=== PATIENT | female | born 1940 | race Caucasian/White ===

== ENCOUNTER 2023-08-30 12:52 | Outpatient (RCR) | payer MEDICARE, BC, SELFPAY | END 2023-08-30 23:59 | disposition home or self-care (01) | LOC: RPT 12:52 | PROVIDERS: ATTENDING PHYSICIAN Internal Medicine Gastroenterology; PRIMARYCARE PHYSICIAN Family Medicine | DX: M62.89 Other specified disorders of muscle (principal); N39.41 Urge incontinence; K59.00 Constipation, unspecified; N39.3 Stress incontinence (female) (male); Z73.6 Limitation of activities due to disability | CPT/HCPCS: 97014; 97112; 97530 ==

== ENCOUNTER 2023-09-13 13:14 | Outpatient (RCR) | payer MEDICARE, BC, SELFPAY | END 2023-09-13 23:59 | disposition home or self-care (01) | LOC: RPT 13:14 | PROVIDERS: ATTENDING PHYSICIAN Internal Medicine Gastroenterology; PRIMARYCARE PHYSICIAN Family Medicine | DX: M62.89 Other specified disorders of muscle (principal); N39.41 Urge incontinence; K59.00 Constipation, unspecified; N39.3 Stress incontinence (female) (male) | CPT/HCPCS: 97014; 97112; 97530 ==

== ENCOUNTER 2023-12-07 13:01 | Observation (INO) | payer MEDICARE, BC, SELFPAY ==
[2023-12-07] VITALS (8 sets, daily range): BP systolic 136–187; BP diastolic 58–91; BMI 27.0; BMI 24.4
[2023-12-07 10:45] LABS: Glucose - Point of Care 161 mg/dl (70-99)
--- NOTE | 2023-12-07 10:54 | ED.CVA ---
History of Present Illness
General
Chief Complaint: CVA/TIA Symptoms
Time Seen by Provider: 12/07/23 10:44
Onset of Stroke Symptoms
Onset of symptoms known: Yes
Date of onset of symptoms: 12/07/23
Travel History
Have you had any contact with someone who has COVID-19?: No
Do you have any symptoms of coronavirus? Fever > 100 degrees, chills, cough, shortness of breath, sore throat, loss of taste or smell, muscle aches, or headache?: No
History of Present Illness
History of Present Illness:
82-year-old female with history of Parkinson's and hypertension presents to the emergency department from home for evaluation of strokelike symptoms. At approximately 10 AM today she called her daughter and sounded quite anxious on the phone, could
communicate 'something is wrong' but remainder of speech was not eligible. Daughter last saw the patient last night at 6 PM where she was definitively normal. She has no speech or cognitive deficits as a result of her Parkinson's. Patient appears
quite anxious and repeats the phrase 'something is wrong'. She is not on any anticoagulants. Daughter notes that her blood pressure has been quite labile over the past few months, had her hydrochlorothiazide discontinued in August due to low
blood pressures but over the past week was noted to have high blood pressures, was last seen by her primary care physician 4 days ago
Past History
Past History
ED Past Medical History: HTN and Hypercholesterolemia
ED Past Surgical History: None
Social History
Tobacco: Non-smoker
Alcohol: None
Personal:
Living: with family
Employment: Retired
Family History
Family History: Other (Noncontributory)
Review of Systems
Review of Systems
Allergies reviewed?: Yes
All Other Systems: ROS reviewed and negative except as documented in HPI and ROS
Phy Exam
Physical Exam
Physical Exam:
GEN: Well appearing, NAD, WDWN
HEENT: Oral mucosa moist, no scleral icterus, no nasal congestion
Cardiac: Regular rate
Lung: No respiratory distress, no tachypnea
MSK: No gross deformity or injuries
Skin: Good color, no pallor or jaundice, no rashes
Neuro: Alert, follows commands. Notable aphasia, unable to answer date of , month, year, or location. Aware of name. Subtle right upper extremity drift and decreased handgrip, remainder of extremities display 5 out of 5 strength with intact
sensation throughout. Speech is clear but nonsensical. Normal visual barrientos
Psych: Calm, cooperative
Scores
NIH Stroke Score
Level of Consciousness: 0 - Alert
LOC Questions: 1-Answers one correctly
LOC Commands: 0-Performs both correctly
Best Horizontal Gaze: 0-Normal
Visual Barrientos: 0=Normal, no visual loss
Facial Palsy: 0=Normal, symmetrical
Motor - Right Arm: 0=No drift 10 seconds
Motor - Left Arm: 1=Drift < 10 seconds
Motor - Right Le-No drift 5 seconds
Motor - Left Le-No drift 5 seconds
Limb Ataxia: 0-Absent
Sensation: 0-Normal
Best Language: 2-Severe aphasia
Dysarthria: 0-Normal
Extinction and Inattention: 0-No abnormality
Total Score:: 4
Course
Orders/Labs/Results
Orders:
Orders
12/07/23 10:51
Electrocardiogram (*1) Urgent
Reason for Study: Other
Other Reason for Exam: Possible Stroke
Cardiac Monitoring- Treatment ONCE
EKG- Treatment ONCE
IV Insert/Care/Rem.- Treatment PRN
Vital Signs As Directed
Frequency: Other
Weight As Directed
Frequency: Once
Comment: ZERO STRETCHER SCALE FOR ACCURATE WEIGHT
O2 Therapy [RESP] Urgent
Titrate/Wean O2 to maintain O2 sat greater than (%): 93
Special Instructions: MAINTAIN CONTINUOUS O2 SATS > OR = 93%
12/07/23 10:52
CT Head W/o Cont STROKE ALERT Stat
Comment:
Reason For Exam: aphasia
12/07/23 10:53
CT Head/Neck Ang STROKE ALERT Urgent
Reason For Exam: expressive aphasia
12/07/23 10:55
Cardiovascular Evaluation Urgent
Complete Blood Count/With Diff Urgent
Comprehensive Metabolic Panel Urgent
Glycohemoglobin (HgbA1c) Urgent
PTT Urgent
Prothrombin Time Urgent
Troponin I Urgent
12/07/23 10:58
CT Brain Perfusion Urgent
Comment:
Reason For Exam: stroke
12/07/23 11:46
Aspirin 325 mg PO NOW STA
Lorazepam [Ativan] 0.5 mg PO NOW STA
12/07/23 12:11
MR Brain Without Contrast Routine
Comment:
Reason For Exam: Aphasia
Recent pill cam endoscopy?: No
Clopidogrel Bisulfate [Plavix] 300 mg PO NOW STA
12/07/23 12:12
Consult Neurology [NEUROLOGY CONSULT] Urgent
Consulting Provider: Mukesh Miller
Was physician already notified: Yes
12/07/23 12:15
Prochlorperazine [Compazine] 10 mg IV NOW STA
12/07/23 12:42
Urinalysis Reflex To Culture Routine
12/07/23 12:50
Admit/Transfer Patient As Directed
Co-Sign Provider:
Level of Care: Observation services
Assign to:: Telemetry
Physician / Group: Ty/hospitalist
Diagnosis: Confusion
Reason for Telemetry: CVA/TIA
Date to Stop Telemetry: 12/10/23
Time to Stop Telemetry: 11:00
Reason for Hospitalization: Confusion
12/07/23 12:51
Code Status As Directed
Resuscitation Status: Full Code
12/07/23 12:54
Add On- LAB Routine
Tests Added?: A1C, lipid panel
12/07/23 13:00
0.9% Sodium Chloride 1000 ml [Nss] 1,000 ml IV 60 mls/hr
Lidocaine [Lidocaine 4% Patch] 1 patch TOPICAL DAILY
12/08/23 08:00
Clopidogrel Bisulfate [Plavix] 75 mg PO DAILY
12/10/23 11:00
DC Protocol for Telemetry ONCE
Abnormal Lab Results
12/07/23 12/07/23
10:44 10:55
MPV 10.5 H fL
(7.4-10.4)
Absolute Monos (auto) 0.7 H 10^3/uL
(0.1-0.6)
Monocytes % 11.4 H %
(1.7-9.3)
APTT 23.3 L Sec
(23.4-35.0)
Sodium 134 L mmol/L
(135-145)
BUN 22 H mg/dl
(7-17)
Creatinine 1.2 H mg/dL
(0.6-1.0)
Glucose 161 H mg/dl
(70-99)
Hemoglobin A1c 6.7 H %
(4.0-5.6)
Calcium 10.4 H mg/dl
(8.4-10.2)
POC Glucose 161 H mg/dl
(70-99)
12/07/23 10:55
12/07/23 10:55
Vital Signs
Initial and Last Documented VS:
Initial Vital Signs
Temp Pulse Resp BP Pulse Ox
97.5 F 83 18 161/91 99
12/07/23 10:40 12/07/23 10:40 12/07/23 10:40 12/07/23 10:40 12/07/23 10:40
Last Documented Vital Signs
Temp Pulse Resp BP Pulse Ox
98.1 F 76 17 187/82 97
12/07/23 15:43 12/07/23 15:43 12/07/23 15:43 12/07/23 15:43 12/07/23 15:43
MDM/Problems Addressed
MDM/Problems Addressed:
Patient taken promptly to CT scan as a stroke alert. After careful discussion with neurology, CT perfusion and CT angiogram were both obtained however these studies were grossly unremarkable. Given the unclear onset of patient's symptoms through
shared decision-making with family as well as neurology that thrombolytic therapy was not appropriate. Will admit the patient for further stroke workup, aspirin load given in the emergency department per neurology recommendations.
Comment
Comment:
EKG independently interpreted by me shows normal sinus rhythm, rate of 81, PVC noted, no ischemic changes however significant patient motion artifact is noted particularly in the inferior leads
*Critical Care Note
Total Time (30-74mins, 75-104mins- exclusive of procedures): Not Applicable
Update Note
Update Note:
1057: Neurology arrived, discussed case. I Will proceed with CTH, CT perfusion due to presumed acute but uncertain onset, CTA.
1139: D/W rads and neuro. CTA/CTP negative. TNK not indicated at this time as the onset is not clearly symptoms do seem to have some degree of improvement. Some improvement in aphasia noted. WIll admit for further stroke workup
ED Attending Note
-
Portions of this chart may have been created with voice recognition software.� Occasional wrong word or��sound alike� substitutions may have occurred due to the inherent limitations of voice recognition software.
Discharge Plan
Departure
Patient Disposition: Admit
Date of Disposition: 12/07/23
Time of Disposition: 11:46
Admit to: Telemetry
Presentation/result/management discussed w/ accepting MD/DO: Hospitalist
Discharge Problem:
Expressive aphasia
Interventions
Interventions:
*Risk Screen - Suicide Last Done: 12/07/23 10:40
*General Assessment Last Done: 12/07/23 10:40
*Neglect/Abuse Screening Last Done: 12/07/23 10:40
ED- Fall Risk Assessment Last Done: 12/07/23 11:25
*ED COVID-19 Vaccine History Last Done: 12/07/23 10:40
*Nursing Disposition Last Done: 12/07/23 15:03
ED- Pulmonary Assessment Last Done: 12/07/23 11:25
ED- Neurological Assessment Last Done: 12/07/23 11:31
ED- Cardiac Assessment Last Done: 12/07/23 11:24
ED Swallowing Screen Last Done: 12/07/23 11:45
Discharge Date and Time
Discharge Date/Time: 12/07/23 15:05
--- NOTE | 2023-12-07 10:59 | EDRN ---
Patient transported to CT via stretcher by RAGHAV Dexter and Dr. Miller.
--- NOTE | 2023-12-07 11:03 | CON.NEURO ---
Neuro Assessment/Plan
Assessment
IMPRESSIONS/RECOMMENDATIONS:
Abrupt change in speech with confusion
CT perfusion failed to demonstrate an obvious deficit which suggests that the lesion is most likely either outside the acute range, or nonvisualized. Most likely the patient has experienced an acute ischemic stroke. Differential diagnosis would
include functional neurological disorder.
Patient was not a candidate for intra-arterial thrombectomy as there is no evidence of a clot for retrieval, was not a candidate for tenecteplase due to lack of clarity regarding time of onset of symptoms
Plan
Initiate combination of aspirin and clopidogrel with loading doses provided as 325 mg and 300 mg respectively
Provide daily aspirin and clopidogrel x 21 total days, then aspirin alone if MRI demonstrates acute ischemic stroke
Check MRI of brain
Check lipid profile, continue rosuvastatin
Rehabilitation evaluations
Medical educational materials to be provided
Provide lorazepam 0.5 mg now in hopes of reducing anxiety which may be producing symptomatology although this is unclear
Provide carbidopa/levodopa as symptomatic treatment for Parkinson's
Goal of blood pressure less than 220/120 until tomorrow morning at which time patient may have the goal of normotension
Goal of normoglycemia
Provide prochlorperazine to the patient's self stated left-sided neck pain which may be migrainous in origin
Will continue to follow patient. Thank you.
Consultation
Order
Date of Consultation: 12/07/23
Requesting Provider: ED Provider
Reason for Consult: Aphasia
Subjective/Objective
Subjective Data
Date of Service: December 07, 2023
Patient presented to this hospital's emergency department with acute onset speech dysfunction and confusion. Patient called daughter at 10:00 today to indicate there was a problem although was unable to indicate what the problem had been. Of note
is that the patient has had labile hypertension with changes in antihypertensives with last modification approximately 4 days prior to this presentation.
The patient himself is not aware of other associated symptoms at this time and there are no known modifying factors. The patient has not experienced similar difficulties in the past.
Of note is that the patient was diagnosed with Parkinson's disease and has utilized carbidopa/levodopa as prescribed by a local neurologist. There is a suggestion that the patient has undergone MRI imaging of the brain previously. Patient has
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 The patient was diagnosed following onset of left hand tremor beginning in October 2022.
Objective Data
Vital Signs
Temp Pulse Resp BP Pulse Ox
36.4 C 83 18 161/91 99
12/07/23 10:40 12/07/23 10:40 12/07/23 10:40 12/07/23 10:40 12/07/23 10:40
Patient Allergies
No Known Allergies Allergy (Unverified 05/18/23 11:20)
CVA Assessment
Onset of Stroke Symptoms
Onset of symptoms known: No
Time pt last seen normal is known: Yes
Date last time pt seen normal: 12/07/23
Time last time pt seen normal: 18:00
NIH Stroke Score
Level of Consciousness: 0 - Alert
LOC Questions: 1-Answers one correctly
LOC Commands: 1-Performs one correctly
Best Horizontal Gaze: 0-Normal
Visual Rogers: 0=Normal, no visual loss
Facial Palsy: 0=Normal, symmetrical
Motor - Right Arm: 0=No drift 10 seconds
Motor - Left Arm: 0=No drift 10 seconds
Motor - Right Le-No drift 5 seconds
Motor - Left Le-No drift 5 seconds
Limb Ataxia: 0-Absent
Sensation: 0-Normal
Best Language: 0-No aphasia
Dysarthria: 0-Normal
Extinction and Inattention: 0-No abnormality
Total Score:: 2
Tenecteplase Contraindications
Inclusion and Exclusion criteria reviewed: Yes
Review of Systems
-
History Source: Patient
All other systems: Reviewed and negative
EENT: Negative Decreased Vision or Swallowing Difficulty
Respiratory: Negative Trouble Breathing
Cardiac: Negative Chest Pain
Abdomen/GI: Negative Incontinence of Stool
Genitourinary: Negative Incontinence
Musculoskeletal: Neck Pain; Negative Back Pain
Neuro: Dizzy and Headache
Physical Exam
-
General: No Apparent Distress and Appears Stated Age
Eyes: OU Absent Papilledema, Round OU, Snowslip Conjunctivae and No Ptosis
HEENT: Anicteric and Moist Mucous Membranes
Neck: Full Range of Motion
Respiratory: No Dyspnea
Cardiac: No JVD
GI: Non-distended
Skin: Unremarkable
Extremities: No Clubbing, No Cyanosis and No Edema
Psych: Intact Judgement/Insight
Extended Neurological Exam
Mood & Affect: Anxious
Attention Span & Concentration: Awake, Alert, Interactive and Moderate Difficulty with 2 Step Request
Memory: Unable to Recall Personal History
Tremor: Head Tremor Absent, Distal, Amplitude (medium left hand, rhythmic) and Frequent
Speech: Quality Unremarkable, Mildly Reduced Output and Other (OK short phrases, with later non-sensical words)
Cranial Nerve II: Left Eye: Pupillary Reactivity Unremarkable, Pupillary Size Unremarkable and Visual Rogers Intact
Cranial Nerve II: Right Eye: Pupillary Reactivity Unremarkable, Pupillary Size Unremarkable and Visual Rogers Intact
Cranial Nerves III, IV, : Extraocular Movement: Extraocular Movement Full in all Directions
Cranial Nerve VII: Facial Symmetry: Normal Facial Symmetry
Cranial Nerve VIII: Hearing: Unremarkable Hearing to Normal Conversational Volume
Cranial Nerves IX, X: Palate Movement: Palate Elevation Symmetric
Cranial Nerve XI: Shoulder Shrug: Unremarkable
Cranial Nerve XII: Tongue Protusion: Midline
Muscle Strength, Overall: Full Throughout
Muscle Bulk & Tone: Bulk Unremarkable and Tone Unremarkable
Pronator Drift: No Drift in Upper Extremities
Deep Tendon Reflexes: Trace Throughout
Cold Sensation: Unable to Assess
Vibration Sensation: Unable to Assess
Touch Sensation: Unremarkable
Coordination: [id number]-[id number] Testing Unremarkable
Babinski Sign: Absent Bilaterally
Gait & Station: Unable to Assess
Data Reviewed
-
CT Head: Image Reviewed
Labs: Ordered
Reviewed with: Physician Awning Craftsperson and Family
Old Records: Summarized
Medications
-
Home Medications
�Medication �Instructions �Recorded
ondansetron 4 mg disintegrating 4 mg PO QIDPRN PRN nausea/vomiting 05/12/17
tablet #10 tabs
sucralfate 100 mg/mL oral 1 gm PO ACHS #300 mL 05/12/17
suspension (Carafate)
meclizine 12.5 mg tablet 12.5 mg PO TID PRN dizziness #30 05/18/23
tabs
Past History
Past History
ED Past Medical History: HTN, Hypercholesterolemia, NIDDM and Other (PD); Negative Renal failure (CKD3a)
ED Past Surgical History: None
Social History
Tobacco: Non-smoker
Alcohol: None
Personal:
Living: with family
Employment: Retired
Family History
Family History: Other (Noncontributory)
[2023-12-07 11:05] LABS: % Basophils 1.1 % (0-2); % Eosinophils 2.8 % (0-6); % Immature Granulocytes 0.3 % (0-0.5); % Lymphocytes 36.3 % (20.5-51.1); % Monocytes 11.4 % (1.7-9.3); % Neutrophils 48.1 % (42.2-75.2); Absolute Basophils 0.1 10^3/uL (0-0.2); Absolute Eosinophils 0.2 10^3/uL (0-0.7); Absolute Lymphocytes 2.4 10^3/uL (1.2-3.4); Absolute Monocytes 0.7 10^3/uL (0.1-0.6); Absolute Neutrophils 3.1 10^3/uL (1.4-6.5); Hemoglobin 13.2 g/dL (12.0-16.0); Mean Corp Hgb Conc. 34.7 g/dL (33.0-37.0); Mean Corpuscular Hgb 28.6 pg (27.0-31.0); Mean Corpuscular Volume 82.3 fL (81.0-99.0); Mean Platelet Volume 10.5 fL (7.4-10.4); Nucleated Red Blood Cells % 0 %; Platelet Count 290 10^3/uL (130-400); Red Blood Cell Count 4.62 10^6/uL (4.20-5.40); Red Cell Dist. Width 13.5 % (11.5-14.5); White Blood Cell Count 6.5 10^3/uL (4.8-10.8)
[2023-12-07 11:17] LABS: ALT (SGPT) 11 U/L (0-35); AST (SGOT) 26 U/L (14-36); Albumin 4.9 g/dl (3.5-5.0); Alkaline Phosphatase 107 U/L (38-126); Blood Urea Nitrogen 22 mg/dl (7-17); Calcium 10.4 mg/dl (8.4-10.2); Carbon Dioxide 25 mmol/L (22-30); Chloride 100 mmol/L (98-107); Estimated Creatinine Clearance 31 ml/min; Glucose 161 mg/dl (70-99); Potassium 3.6 mmol/L (3.5-5.1); Sodium 134 mmol/L (135-145); Total Bilirubin 1.3 mg/dl (0.2-1.3); Total Protein 7.7 g/dl (6.3-8.2); eGFR 45.48
[2023-12-07 11:23] LABS: INR 1.03; PT 13.3 Sec (11.4-14.6)
[2023-12-07 11:24] LABS: APTT 23.3 Sec (23.4-35.0)
[2023-12-07 11:29] LABS: Troponin I < 0.012 ng/ml
[2023-12-07] MEDS: ATIVAN 0.5 MG PO (11:58)
[2023-12-07] MEDS: ASPIRIN 325 MG PO (11:58)
--- NOTE | 2023-12-07 12:12 | HPS.HSE ---
Family Physician
-
Family Physician: Radha Conklin
Chief Complaint
-
Confusion
History of Present Illness
HPI: 82-year-old female with history of Parkinson's, hypertension, HLD, anxiety presented to the emergency department for confusion. She is awake but not orientated, which is abnormal per daughter at bedside.
According to daughter, patient is very functional at baseline despite having Parkinson's. She could drive herself at baseline.
Pt c/o L neck localized pain. She has garbled speech. Denies to weakness or paresthesia. Cannot fully provide ROS due to her current confusion. She was last found normal the day prior to admission.
Medical History
Past Medical History
Past Medical History: Reports Other
Additional Past Medical History:
Parkinson's
hypertension
HLD
anxiety
Past Surgical History: Reports None
Social History
Tobacco: Non-smoker
Alcohol: None
Living: Alone
Family History
Family History: Not pertinent
Allergies / Home Medications
Allergies reflects when Allergies were last updated in [facility].
Home Medications with original date entered in [facility]
Allergy/Medication List:
Allergies
Allergy/AdvReac Type Severity Reaction Status Date / Time
No Known Allergies Allergy Unverified 05/18/23 11:20
Home Medications
alprazolam 0.5 mg tablet 0.25 - 0.5 mg PO HSPRN PRN SLEEP 12/07/23
carbidopa 25 mg-levodopa 100 mg tablet 1 tab PO TID Neurological Condition 12/07/23
escitalopram oxalate 10 mg tablet 10 mg PO DAILY Depression 12/07/23
linaclotide 290 mcg capsule (Linzess) 290 mcg PO DAILY Constipation 12/07/23
losartan 25 mg tablet 25 mg PO DAILY Blood Pressure 12/07/23
losartan 50 mg tablet 50 mg PO DAILY@1500 12/07/23
metoprolol succinate 50 mg tablet,extended release 24 hr 50 mg PO DAILY Blood Pressure 12/07/23
pantoprazole 40 mg tablet,delayed release 40 mg PO DAILY Gastrointestinal Issue 12/07/23
polyethylene glycol 3350 17 gram/dose oral powder 17 g PO DAILY Constipation 12/07/23
rosuvastatin 40 mg tablet 40 mg PO DAILY High Cholesterol 12/07/23
Review of Systems
-
Neurological: Reports See HPI and Other (Confusion); Denies Weakness or Numbness
Physical Exam
Vital Signs
Vital Signs
Temp Pulse Resp BP Pulse Ox
36.4 C 83 17 145/58 100
12/07/23 10:40 12/07/23 12:00 12/07/23 12:00 12/07/23 11:41 12/07/23 11:30
Physical Exam
General: Well Developed, Well Nourished, No Apparent Distress, Comfortable and Conversant
HEENT: NormoCephalic, Moist mucous membranes and Atraumatic
Respiratory: Clear and Non Labored Respirations; No Accessory Resp Muscle Use
Cardiac: S1/S2 and Regular Rhythm; No Murmur or Rub
GI: Soft, Non Tender, Non Distended and Normal Bowel Sounds; No Organomegaly
Rectal: Deferred by Provider
Musculoskeletal: No Clubbing, No Cyanosis and No Edema
Skin: No Rash
Neuro: Awake, Alert, No Motor Deficits, No Sensory Deficits and Slurred Speech; No AO x 3 or Facial Droop
Psych: Calm, Confused and Anxious; No Intact Judgment/Insight
Laboratory Results
-
12/07/23 10:55
12/07/23 10:55
Laboratory Results
PT 13.3 Sec (11.4-14.6) 12/07/23 10:55
INR 1.03 12/07/23 10:55
APTT 23.3 Sec (23.4-35.0) L 12/07/23 10:55
Total Bilirubin 1.3 mg/dl (0.2-1.3) 12/07/23 10:55
AST 26 U/L (14-36) 12/07/23 10:55
ALT 11 U/L (0-35) 12/07/23 10:55
Alkaline Phosphatase 107 U/L (38-126) 12/07/23 10:55
Troponin I < 0.012 ng/ml 12/07/23 10:55
Data Reviewed
-
CT Scan: Report Reviewed by me
Lab Data: Labs Reviewed by me
Impression/Plan
-
HPI: 82-year-old female with history of Parkinson's, hypertension, HLD, anxiety presented to the emergency department for confusion. She is awake but not orientated, which is abnormal per daughter at bedside.
According to daughter, patient is very functional at baseline despite having Parkinson's. She could drive herself at baseline.
Pt c/o L neck localized pain. She has garbled speech. Denies to weakness or paresthesia. Cannot fully provide ROS due to her current confusion. She was last found normal the day prior to admission.
A/P:
# Acute metabolic encephalopathy, due to acute stroke/TIA vs anxiety vs others
CT head, CT Angio head and neck are unrevealing
Neuro on board, [facility] MRI brain (Ativan prior to MRI for anxiety/claustrophilia)
ASA and Plavix
Check A1C, lipid panel
Check UA reflex Cx to r/o UTI
SPL eval prior to starting diet due to current garbled speech
# Possible JUJU
SCr 1.2 from baseline 1.0
Hold PHYS ASST HCTZ / losartan
Gentle IVF
# Left neck localized pain, likely MSK
Trial of lidocaine patch
PT OT eval
# Parkinson's disease
Continue with prior to admission Sinemet
# Essential hypertension
Holding PHYS ASST HCTZ /losartan
Continue prior to admission Toprol and consider increasing dose if needed
# anxiety
Continue prior to admission low-dose Xanax (increase to TID PRN from HS)
DVT ppx: SCD for now
FC
Discussed with daughter at bedside
--- NOTE | 2023-12-07 12:37 | PHANOTE ---
Med Rec Note:
Pt's family unsure of pt's medications, states pt's primary dr faxed over med list and was updated on . Home med list compiled from Dr Camarillo and Physicians list.
[2023-12-07] MEDS: PLAVIX 300 MG PO (12:44)
[2023-12-07] MEDS: COMPAZINE 10 MG IV (12:44)
[2023-12-07] MEDS: TYLENOL 1000 MG PO (13:26)
[2023-12-07] MEDS: ROXICODONE 2.5 MG PO (13:26)
[2023-12-07] MEDS: LIDOCAINE 4% PATCH 1 PATCH TOPICAL (13:27)
[2023-12-07 13:36] LABS: HDL Cholesterol 59 mg/dl; LDL Cholesterol, Calculated 66 mg/dl; Total Cholesterol 150 mg/dl (50-199); Triglyceride 127 mg/dl (10-149); Very Low Density Lipoprotein 25 mg/dl (0-30)
[2023-12-07 14:10] LABS: Glycohemoglobin (HgbA1c) 6.7 % (4.0-5.6)
[2023-12-07] MEDS: NSS 1000 IV (15:18)
--- NOTE | 2023-12-07 17:52 | PTCARENOTE ---
Received Pt from ED. AAOx1. NIH score 3. Oriented to room and use of call mccain. Family at bedside. BP elevated, aware- new order Hydralazine 10mg IV q4hrs PRN SBP >180. Call mccain within reach.
[2023-12-07] MEDS: SINEMET 25-100 1 TABLET PO ×2 (17:55→22:33)
[2023-12-07] MEDS: TYLENOL 650 MG PO (18:00)
[2023-12-08 03:45] VITALS: BP 146/68
[2023-12-08] MEDS: NSS 1000 IV (04:21)
[2023-12-08 07:00] VITALS: BP 157/74
[2023-12-08 07:43] LABS: Hematocrit 34.4 % (37.0-47.0); Hemoglobin 11.6 g/dL (12.0-16.0); Mean Corp Hgb Conc. 33.7 g/dL (33.0-37.0); Mean Corpuscular Hgb 28.9 pg (27.0-31.0); Mean Corpuscular Volume 85.6 fL (81.0-99.0); Mean Platelet Volume 10.7 fL (7.4-10.4); Platelet Count 230 10^3/uL (130-400); Red Blood Cell Count 4.02 10^6/uL (4.20-5.40); Red Cell Dist. Width 13.6 % (11.5-14.5); White Blood Cell Count 5.6 10^3/uL (4.8-10.8)
--- NOTE | 2023-12-08 08:08 | W.PN.NEURO.1 ---
Today's Communication / Plan
-
Discontinue combination of aspirin and clopidogrel, continue aspirin 81 mg daily for next 6 months
continue rosuvastatin
Rehabilitation evaluations
Provide carbidopa/levodopa as symptomatic treatment for Parkinson's
Monitor outpatient orthostatic BPs
Will need to follow with usual outpatient neurologist
Neuro Assessment/Plan
Assessment
IMPRESSIONS/RECOMMENDATIONS:
Abrupt change in speech with confusion
CT perfusion study failed to demonstrate an obvious deficit which suggests that the lesion is most likely either outside the acute range, or nonvisualized.
MRI of the brain also failed to demonstrate ischemic injury previously or acutely
Most likely diagnosis is migraine with aura or TIA.
Plan
Discontinue combination of aspirin and clopidogrel, continue aspirin 81 mg daily for next 6 months
continue rosuvastatin
Rehabilitation evaluations
Provide carbidopa/levodopa as symptomatic treatment for Parkinson's
Monitor outpatient orthostatic BPs
goal of normotension
Goal of normoglycemia
Will need to follow with usual outpatient neurologist.
Subjective/Objective
Subjective Data
Date of Service: December 08, 2023
Headache for days prior to presentation.
Unable to recall, not improved, resolved.
Objective Data
Vital Signs
Temp Pulse Resp BP Pulse Ox
36.5 C 59 18 157/74 97
12/08/23 07:00 12/08/23 07:00 12/08/23 07:00 12/08/23 07:00 12/08/23 07:00
Lab Results
12/08/23 07:13
PT 13.3 Sec (11.4-14.6) 12/07/23 10:55
INR 1.03 12/07/23 10:55
APTT 23.3 Sec (23.4-35.0) L 12/07/23 10:55
Sodium 134 mmol/L (135-145) L 12/07/23 10:55
Potassium 3.6 mmol/L (3.5-5.1) 12/07/23 10:55
BUN 22 mg/dl (7-17) H 12/07/23 10:55
Glucose 161 mg/dl (70-99) H 12/07/23 10:55
Calcium 10.4 mg/dl (8.4-10.2) H 12/07/23 10:55
LDL Cholesterol, Calc 66 mg/dl 12/07/23 10:55
Patient Allergies
No Known Allergies Allergy (Unverified 05/18/23 11:20)
Review of Systems
-
History Source: Patient
All other systems: Reviewed and negative
EENT: Negative Decreased Vision or Swallowing Difficulty
Respiratory: Negative Trouble Breathing
Cardiac: Negative Chest Pain
Abdomen/GI: Negative Incontinence of Stool
Genitourinary: Negative Incontinence
Musculoskeletal: Negative Back Pain or Neck Pain
Neuro: Negative Dizzy or Headache
Physical Exam
-
General: No Apparent Distress and Appears Stated Age
Eyes: Round OU, [place] Conjunctivae and No Ptosis
HEENT: Anicteric and Moist Mucous Membranes
Neck: Full Range of Motion
Respiratory: No Dyspnea
Cardiac: No JVD
GI: Non-distended
Skin: Unremarkable
Extremities: No Clubbing, No Cyanosis and No Edema
Psych: Intact Judgement/Insight
Extended Neurological Exam
Mood & Affect: Mood Unremarkable and Affect Unremarkable
Attention Span & Concentration: Awake, Alert and Interactive
Memory: Unremarkable
Tremor: Head Tremor Absent, Distal, Amplitude (medium left hand, rhythmic) and Frequent
Speech: Quality Unremarkable and Quantity Unremarkable
Cranial Nerve II: Left Eye: Pupillary Size Unremarkable and Visual Rogers Grossly Intact
Cranial Nerve II: Right Eye: Pupillary Size Unremarkable and Visual Rogers Grossly Intact
Cranial Nerves III, IV, : Extraocular Movement: Grossly Intact
Cranial Nerve VII: Facial Symmetry: Normal Facial Symmetry
Cranial Nerve VIII: Hearing: Unremarkable Hearing to Normal Conversational Volume
Muscle Strength, Overall: Spontaneously Moves
Muscle Bulk & Tone: Bulk Unremarkable and Tone Unremarkable
Pronator Drift: No Drift in Upper Extremities
Touch Sensation: Unremarkable
Coordination: Reaches for Objects without Difficulty
Data Reviewed
-
MRI Head: Report Reviewed
Labs: Report Reviewed
Reviewed with: Physician, Patient and Family
Old Records: Summarized
Past History
Past History
ED Past Medical History: HTN, Hypercholesterolemia, NIDDM and Other (PD); Negative Renal failure (CKD3a)
ED Past Surgical History: None
Social History
Tobacco: Non-smoker
Alcohol: None
Personal:
Living: with family
Employment: Retired
Family History
Family History: Other (Noncontributory)
Medications
-
Medications:
Generic Name Dose Route Start Last Admin
Trade Name Freq PRN Reason Stop Dose Admin
Acetaminophen 650 mg 12/07/23 16:27
Acetaminophen 650 Mg Rectal Suppository RECTAL 01/04/24 16:26
Q4HPRN PRN
TORRES, mild pain, or temp >100.4F
Acetaminophen 650 mg 12/07/23 16:27 12/07/23 18:00
Acetaminophen 325 Mg Tablet PO 01/04/24 16:26 650 mg
Q4HPRN PRN Administration
TORRES, mild pain, or temp >100.4F
Alprazolam 0.25 mg 12/07/23 18:00
Alprazolam 0.25 Mg Tablet PO 01/04/24 17:59
Q8HPRN PRN
anxiety
Aspirin 81 mg 12/08/23 08:00
Aspirin 81 Mg Chewable Tablet PO 01/05/24 07:59
DAILY LETICIA
Carbidopa/Levodopa 1 tablet 12/07/23 16:27 12/07/23 22:33
Carbidopa (25 Mg)/Levodopa (100 Mg) Regular Release Tablet PO 01/04/24 16:26 1 tablet
TID LETICIA Administration
Clopidogrel Bisulfate 75 mg 12/08/23 08:00
Clopidogrel 75 Mg Tablet PO 12/28/23 08:01
DAILY LETICIA
Escitalopram Oxalate 10 mg 12/08/23 08:00
Escitalopram 10 Mg Tablet PO 01/05/24 07:59
DAILY LETICIA
Hydralazine HCl 10 mg 12/07/23 18:17
Hydralazine 20 Mg/Ml Vial IV 01/04/24 18:16
Q4HPRN PRN
SBP >180
Sodium Chloride 1,000 mls @ 60 mls/hr 12/07/23 13:00 12/08/23 04:21
Nss IV 1,000 mls
.[id number] LETICIA Administration
Lidocaine 1 patch 12/07/23 13:00 12/07/23 13:27
Lidocaine 4% Topical Patch TOPICAL 01/04/24 12:59 1 patch
DAILY LETICIA Administration
Linaclotide 290 mcg 12/08/23 08:00
Linaclotide 290 Mcg Capsule PO 01/05/24 07:59
DAILY LETICIA
Metoprolol Succinate 50 mg 12/08/23 08:00
Metoprolol 50 Mg Extended Release Tablet PO 01/05/24 07:59
DAILY LETICIA
Pantoprazole Sodium 40 mg 12/08/23 08:00
Pantoprazole 40 Mg Delayed Release Tablet PO 01/05/24 07:59
DAILY LETICIA
Patch Removal 1 patch 12/07/23 20:00 12/07/23 22:34
Remove Lidocaine Patch REMOVE 01/04/24 19:59 Not Given
DAILY@2000 LETICIA
Polyethylene Glycol 17 grams 12/08/23 08:00
Polyethylene Glycol Powder 17 Grams Packet PO 01/05/24 07:59
DAILY LETICIA
Rosuvastatin Calcium 40 mg 12/08/23 08:00
Rosuvastatin (Crestor) 40 Mg Tablet PO 01/05/24 07:59
DAILY LETICIA
Sodium Chloride 0 flush 12/07/23 17:00
Sodium Chloride 0.9% (Flush) Syringe IV 01/04/24 16:59
PER PROTOCOL LETICIA
[2023-12-08] MEDS: LEXAPRO 10 MG PO (08:34)
[2023-12-08] MEDS: TOPROL XL 50 MG PO (08:34)
[2023-12-08] MEDS: PROTONIX 40 MG PO (08:34)
[2023-12-08] MEDS: MIRALAX 17 GRAMS PO (08:34)
[2023-12-08] MEDS: CRESTOR 40 MG PO (08:34)
[2023-12-08] MEDS: SINEMET 25-100 1 TABLET PO (08:34)
[2023-12-08] MEDS: LIDOCAINE 4% PATCH 1 PATCH TOPICAL (08:35)
[2023-12-08 08:38] LABS: Blood Urea Nitrogen 16 mg/dl (7-17); Calcium 9.5 mg/dl (8.4-10.2); Carbon Dioxide 25 mmol/L (22-30); Chloride 101 mmol/L (98-107); Estimated Creatinine Clearance 48 ml/min; Glucose 92 mg/dl (70-99); HDL Cholesterol 45 mg/dl; LDL Cholesterol, Calculated 56 mg/dl; Potassium 3.5 mmol/L (3.5-5.1); Sodium 137 mmol/L (135-145); Total Cholesterol 119 mg/dl (50-199); Triglyceride 91 mg/dl (10-149); Very Low Density Lipoprotein 18 mg/dl (0-30); eGFR > 60.00
[2023-12-08 09:22] VITALS: BP 163/68; PULSE 61; O2SAT 97
--- NOTE | 2023-12-08 09:31 | PTOTSP ---
Patient demonstrates safe and independent mobility including stairs, no skilled physical therapy needs at this time.
--- NOTE | 2023-12-08 10:48 | W.PN.HOSP.TC ---
Addendum entered and electronically signed by Cayla Crawford MD 12/08/23 11:49:
discussed with neuro. Recc to cont baby aspirin going forward- sent to pharmacy
total DC time 40 min
Original Note:
Today's Communication/Plan
-
DC home with HH
Assessment / Plan
Assessment / Plan
HPI: 82-year-old female with history of Parkinson's, hypertension, HLD, anxiety presented to the emergency department for confusion. She is awake but not orientated, which is abnormal per daughter at bedside.
According to daughter, patient is very functional at baseline despite having Parkinson's. She could drive herself at baseline.
Pt c/o L neck localized pain. She has garbled speech. Denies to weakness or paresthesia. Cannot fully provide ROS due to her current confusion. She was last found normal the day prior to admission.
MRI brain:
1. No MRI evidence for acute infarct or intracranial hemorrhage.
2. Mild white matter leukoaraiosis in the frontal and parietal lobes.
3. Mild diffuse cerebral and cerebellar volume loss.
4. Moderate discogenic degenerative disease and 3.5 mm anterolisthesis at C3/C4 with a central disc herniation causing mild spinal cord compression and central canal stenosis.
A/P:
# Acute metabolic encephalopathy, likely due to severe anxiety
CT head, CT Angio head and neck are unrevealing
MRI brain negative for acute stroke, noted mild white matter leukoaraiosis in the frontal and parietal lobes.
Off ASA and Plavix
Garbled speech has resolved, no need for SPL eval, can cont solid food
# JUJU, resolved
SCr 1.2 -> 0.8, from baseline 1.0
resume [employer] HCTZ / losartan and check BMP in 1 week with result to PCP
s/p IVF
# Left neck localized pain, likely due to central disc herniation causing mild spinal cord compression and central canal stenosis- pain has resolved
MRI brain result at above
given pain has resolved , no need for neurosurgery eval at this point , can follow neurosurgery outpt
added lidocaine this admission, cont going forward
# Parkinson's disease
Continue with prior to admission Sinemet
# Essential hypertension
Holding [employer] HCTZ /losartan
Continue prior to admission Toprol and consider increasing dose if needed
# anxiety
Continue prior to admission low-dose Xanax (increase to TID PRN from HS)
DVT ppx: SCD for now
FC
Discussed with daughter at bedside
Anticipated Discharge: Today
Subjective/Interval History
-
Date of Service: December 08, 2023
Objective Data
-
Labs:
Laboratory Results
12/08/23
07:13
WBC 5.6
Hgb 11.6 L
Hct 34.4 L
Plt Count 230 D
Sodium 137
Potassium 3.5
Chloride 101
Carbon Dioxide 25
BUN 16
Creatinine 0.8
Glucose 92
Calcium 9.5
Vital Signs:
Vital Signs
Temp Pulse Resp BP Pulse Ox
36.5 C 59 18 157/74 97
12/08/23 07:00 12/08/23 07:00 12/08/23 07:00 12/08/23 07:00 12/08/23 07:00
I&O
12/07/23 12/08/23 12/09/23
06:59 06:59 06:59
Output Total 200 / 200
Balance -200 / -200
Review of Systems
-
All other systems: Reviewed and negative
Neuro: Reports No Symptoms; Denies Weakness, Numbness or Ataxia
Physical Exam
-
General: Well Developed, Well Nourished, No Apparent Distress, Comfortable and Conversant; Negative Respiratory Distress
HEENT: Normocephalic, Atraumatic, Nose Appears Normal and Ears Appear Normal; Negative Oxygen
Respiratory: Clear to Auscultation and Non Labored Respirations; Negative Accessory Resp Muscle Use
Cardiac: Regular Rhythm and S1/S2
GI: Soft, Nontender, Nondistended and Normal Bowel Sounds
Skin: Warm and Dry
Neuro: Awake, Alert, Oriented and Nonfocal/Grossly Intact
Psych: Calm and Intact Judgement/Insight
Data Reviewed
-
MRI: Report Reviewed by me and Discussed with Family
Labs: Labs Reviewed by me
[2023-12-08 11:00] VITALS: BP 156/68
[2023-12-08 11:34] VITALS: BP 156/68
[2023-12-08] MEDS: LINZESS 290 MCG PO (11:58)
--- NOTE | 2023-12-08 12:33 | CM ---
Received notification that patient has been medically cleared for discharge by attending and will need VN services. Reviewed chart, met with patient to obtain information for assessment.
Patient stated that she lives alone in a two story condo with two steps to enter. She described herself as independent with her ADLs, personal care, dressing and bathing. She ambulates without device. She confirmed that she can do her own household
chores, cooking, cleaning and laundry.
She denied any DME in her home.
She has never had VN services.
She has a prescription plan and uses [facility] on [facility] for all of her medications.
Her PCP is Dr. Radha Mejia.
Made patient aware of indication on behalf of medical staff for VN and she was agreeable. Options provided. She selected .
Plan: Case management will continue to follow and assist with discharge planning. Home with VN services.
--- NOTE | 2023-12-08 14:17 | W.DCSUMMARY ---
Discharge Summary
Discharge Data
Date of Admission: 12/07/23
Date of Discharge: 12/08/23
-
Pending Results: No
Hospital Course
Principal Diagnosis:
Acute metabolic encephalopathy, likely due to severe anxiety/anxiety attack
Acute kidney injury, resolved
Localized Left neck pain, likely due to central disc herniation causing mild spinal cord compression and central canal stenosis- pain has resolved
Chronic Diagnoses:�
Parkinson's disease, continue with prior to admission Sinemet
Essential hypertension
Anxiety
Consultations:�
Neurology
Procedures:�
None
Clinical course:�
This is a 82-year-old female with past medical history as stated above, who presented with confusion and slurred speech.
Problem 1:
Acute metabolic encephalopathy, likely due to severe anxiety/anxiety attack.
Her CT head, CT Angio head and neck and MRI brain were all negative for acute stroke.
She was seen by neurology, and was recommended to continue with baby aspirin going forward.
Her slurred speech has resolved, and mental status returned to baseline.
Problem 2:
JUJU, resolved.
Her serum creatinine down trended from 1.2 to 0.8 after IV fluid, back to her baseline.
She can resume her prior to admission hydrochlorothiazide/losartan following discharge, and check BMP in 1 week with result to her PCP.
Problem 3:
Left neck localized pain, likely due to central disc herniation causing mild spinal cord compression and central canal stenosis- pain has resolved.
She can continue with lidocaine patch going forward for pain control, and follow-up with neurosurgery outpatient for this.
As for the rest of her medical problems, they were stable during her hospital stay.
Discharge Plan
-
Patient Disposition: Home with Home Care
Discharge Diagnosis/Procedures: Acute confusion with garbled speech likely due to severe anxiety/anxiety attack; acute kidney injury likely due to dehydration- resolved
Condition: Fair
Diet: As tolerated
Activity: As tolerated
Driving Restrictions: Not until seen by your Dr
Blood Work: BMP in 1 week, result to PCP
Activity Restrictions/Additional Instructions:
you can follow up with neurosurgery outpatient for your Left neck localized pain (likely due to central disc herniation causing mild spinal cord compression and central canal stenosis)
Referrals:
Radha Conklin MD [Family Provider] - in less than 1 week
Additional Discharge Medication Instructions: Continue lidocaine patch for your left neck pain
Continue baby aspirin going forward
Prescriptions:
New
lidocaine 4 % Adhesive Patch,Medicated
1 patch topical DAILY Qty: 30 0RF
aspirin 81 mg capsule
81 mg PO DAILY Qty: 30 0RF
Continued
metoprolol succinate 50 mg tablet extended release 24 hr
50 mg PO DAILY
alprazolam 0.5 mg tablet
0.25 - 0.5 mg PO HSPRN PRN (Reason: SLEEP)
Patient Comments:
12/07/2023: last filled 12/03/23, 30 tabs for 30 days from [facility]#[id number]
pantoprazole 40 mg tablet,delayed release (DR/EC)
40 mg PO DAILY
losartan 25 mg tablet
25 mg PO DAILY
polyethylene glycol 3350 17 gram/dose powder
17 g PO DAILY
carbidopa-levodopa 25-100 mg tablet
1 tab PO TID
Rx Instructions:
FILLED 09/16/23 SIG 0.5 TAB BID X3D, THEN 1 TAB BID X3D, THEN 1 TAB TID
escitalopram oxalate 10 mg tablet
10 mg PO DAILY
rosuvastatin 40 mg tablet
40 mg PO DAILY
Linzess 290 mcg capsule
290 mcg PO DAILY
Rx Instructions:
30 MINS BEFORE MEAL
losartan 50 mg tablet
50 mg PO DAILY@1500
Discharge Orders:
Discharge Patient (As Directed); Ordered 12/08/23
Ordered By: Cayla Crawford
Discharge Date and Time
Discharge Date/Time: 12/08/23 13:12
Print Language: SINHALA
== END 2023-12-08 13:12 | disposition home health service (06) ==
LOC: 3 WEST ACU 13:01
PROVIDERS: Physician Assistant; ADMITTING PHYSICIAN Internal Medicine; CONSULT PHYSICIAN Psychiatry & Neurology Neurology; EMERGENCY PHYSICIAN Emergency Medicine; FAMILY PHYSICIAN Family Medicine
DX: G93.41 Metabolic encephalopathy (principal); F41.9 Anxiety disorder, unspecified; R47.01 Aphasia; G20.A1 Parkinson's disease without dyskinesia, without mention of fluctuations; N18.31 Chronic kidney disease, stage 3a; I12.9 Hypertensive chronic kidney disease with stage 1 through stage 4 chronic kidney disease, or unspecified chronic kidney disease; E78.00 Pure hypercholesterolemia, unspecified; E11.22 Type 2 diabetes mellitus with diabetic chronic kidney disease; N17.9 Acute kidney failure, unspecified; R41.0 Disorientation, unspecified; M47.812 Spondylosis without myelopathy or radiculopathy, cervical region; M50.01 Cervical disc disorder with myelopathy, high cervical region; M48.02 Spinal stenosis, cervical region; Z79.02 Long term (current) use of antithrombotics/antiplatelets; Z79.82 Long term (current) use of aspirin
CPT/HCPCS: 0042T; 70450; 70496; 70498; 70551; 80048; 80053; 80061; 82962; 83036; 83735; 84484; 85025; 85027; 85610; 85730; 93005; 97162; 99285; G0378; Q9967

== ENCOUNTER → 2023-12-26 10:52 | Outpatient (REF) | payer MEDICARE, BC, SELFPAY | LOC: WDC 10:52 | PROVIDERS: ATTENDING PHYSICIAN Family Medicine | DX: Z12.31 Encounter for screening mammogram for malignant neoplasm of breast (principal) | CPT/HCPCS: 77063; 77067 ==

== ENCOUNTER → 2024-01-14 14:57 | Outpatient (REF) | payer MEDICARE, BC, SELFPAY | LOC: PAVMRI 14:57 | PROVIDERS: ATTENDING PHYSICIAN Family Medicine | DX: M54.12 Radiculopathy, cervical region (principal); M50.20 Other cervical disc displacement, unspecified cervical region | CPT/HCPCS: 72141 ==

== ENCOUNTER 2024-11-24 06:27 | Day surgery (SDC) | payer MEDICARE, BC, SELFPAY | END 2024-11-24 15:28 | disposition home or self-care (01) | LOC: GI 06:27 | PROVIDERS: ATTENDING PHYSICIAN Internal Medicine Gastroenterology | DX: Z12.11 Encounter for screening for malignant neoplasm of colon (principal); K64.8 Other hemorrhoids; K57.30 Diverticulosis of large intestine without perforation or abscess without bleeding; D12.2 Benign neoplasm of ascending colon; Z86.0100 Personal history of colon polyps, unspecified | CPT/HCPCS: 45380; 88305 ==

== ENCOUNTER → 2024-12-22 12:14 | Outpatient (REF) | payer MEDICARE, BC, SELFPAY | LOC: WDC 12:14 | PROVIDERS: ATTENDING PHYSICIAN Family Medicine | DX: Z12.31 Encounter for screening mammogram for malignant neoplasm of breast (principal) | CPT/HCPCS: 77063; 77067 ==